=== PATIENT | male | born 2000 | race Caucasian/White ===

== ENCOUNTER 2021-01-05 17:19 | Emergency (ER) | payer OTHER ==
[~2021-01-05] VITALS: Ht 188 cm; Wt 74.8 kg
[2021-01-05] MEDS ORDERED: HYDR1TAB94 PO (19:14)
== END 2021-01-05 19:39 | disposition home or self-care (01) ==
LOC: ER 17:19
DX: S43.005A Unspecified dislocation of left shoulder joint, initial encounter (principal); W16.612A Jumping or diving into natural body of water striking water surface causing other injury, initial encounter
CPT/HCPCS: 23655; 73020; 73030; 99283-25; A9270; J2704; J7030